=== PATIENT | female | born 1955 | race Caucasian/White ===

== ENCOUNTER 2017-10-09 13:50 | Inpatient (IN) | payer MEDICAID ==
[~2017-10-09] VITALS: Ht 157.5 cm; Wt 49.9 kg
--- NOTE | 2017-10-09 13:50 | NUR ---
Patient BIB family, transferred from ED lobby to bed 1 via [facility]. Dr. Tian, RN and RT evaluating patient at bedside.
[2017-10-09 13:54] VITALS: BP 154/84
[2017-10-09] MEDS ORDERED: DEXTROSE 50% 50 ML SYR IVP ONE ×3 (13:54→15:15)
--- NOTE | 2017-10-09 13:58 | NUR ---
1345-- Pt arrived unresponsive. Pt brought to rm 1. Per daughter, pt took insulin this am, but has not eaten food today. Pt unarousable. Pt's skin cool and clammy. er md roblero, rt, torres rn, shaina rn, arabella emt by bedside. bs=31.
[2017-10-09] MEDS ORDERED: NACL 0.9% 1,000 ML IV ONE ×2 (14:05→14:30)
--- NOTE | 2017-10-09 14:24 | NUR ---
pt drowsy but awake. Pt able to follow commands, responds to name, and verbalizes needs. Pt denies any pain. er md roblero aware.
[2017-10-09 14:27] LABS: HEMOGLOBIN 9.7 g/dL (12.0-16.0); MEAN CORPUSCULAR HEMOGLOBIN 30 pg (27-31); MEAN CORPUSCULAR HGB CONC 35 g/dL (33-37); MEAN CORPUSCULAR VOLUME 86 fL (80-94); PLATELET COUNT (AUTO) 222 K/uL (140-450); RED BLOOD CELL COUNT(AUTO) 3.27 MIL/uL (4.20-5.40); RED CELL DISTRIBUTION WIDTH 12.4 % (11.6-13.7); WHITE BLOOD COUNT (AUTO) 15.3 K/uL (4.8-10.8)
[2017-10-09 14:45] LABS: LYMPHOCYTES % (MANUAL) 2 % (20-46); MONOCYTES % (MANUAL) 10 % (5-12)
--- NOTE | 2017-10-09 15:00 | NUR ---
pt to ct via [facility] accompanied by public health technologist
[2017-10-09 15:03] LABS: SODIUM SERUM 132 mmol/L (136-145)
[2017-10-09 15:04] LABS: ANION GAP 15.8 (8-16); ASPARTATE AMINOTRANSFERASE 20 U/L (15-37); CARBON DIOXIDE 21.5 mmol/L (21-32); CHLORIDE 98 mmol/L (98-107); CREATININE 1.5 mg/dL (0.6-1.3); GFR ARICAN-AMERICAN 46 mL/min (>90); POTASSIUM 3.3 mmol/L (3.5-5.1); UREA NITROGEN, BLOOD 38 mg/dL (7-18)
[2017-10-09 15:05] LABS: ACETAMINOPHEN < 0.5 ug/ml (10-30); ALBUMIN 2.4 g/dL (3.4-5.0); SALICYLATE < 2.8 mg/dL (2.8-20.0)
[2017-10-09 15:06] LABS: GLUCOSE 35 mg/dL (74-106)
[2017-10-09 15:10] LABS: APPEARANCE,URINE TURBID (CLEAR); BILIRUBIN,URINE NEGATIVE (NEGATIVE); BLOOD, URINE 2+ (NEGATIVE); COLOR,URINE YELLOW (YELLOW); LEUKOCYTE ESTERASE ,URINE 1+ (NEGATIVE); NITRITE, URINE NEGATIVE (NEGATIVE); PH,URINE 5.5 (5.0-9.0); UGLUCOSE 2+ (NEGATIVE)
--- NOTE | 2017-10-09 15:17 | NUR ---
pt returned from ct via gurney accompanied by radiology techs
[2017-10-09] MEDS ORDERED: POTASSIUM CHLORIDE 20% 40 MEQ/15 ML UDC PO ONE (15:20)
[2017-10-09 15:28] LABS: BARBITURATE, URINE NEG. ng/ml (NEG <=200); BENZODIAZEPINE, URINE NEG. ng/mL (NEG <=200); CANNABINOID, URINE NEG. ng/mL (NEG <=50); COCAINE, URINE NEG. ng/mL (NEG <=300); OPIATE, URINE NEG. ng/mL (NEG <=2000); PHENCYCLIDINE SCREEN,URINE NEG. ng/mL (NEG <=25)
[2017-10-09 15:34] LABS: TOTAL BILIRUBIN 0.3 mg/dL (0.0-1.0)
[2017-10-09 15:38] LABS: RBC,URINE 3-10 (FEW) /HPF (0-5); WBC,URINE 80-100 /HPF (0-5)
[2017-10-09] MEDS ORDERED: DEXTROSE 50% 50 ML SYR IVP PRN (15:40)
[2017-10-09] MEDS ORDERED: LORazepam 2 MG/ML VIAL IVP PRN (15:40)
[2017-10-09] MEDS ORDERED: HYDROcodone/APAP 5/325 MG 1 TAB TAB PO PRN (15:40)
[2017-10-09] MEDS ORDERED: MORPHINE SULFATE 2 MG/ML SYR IVP PRN (15:40)
[2017-10-09] MEDS ORDERED: ONDANSETRON 4 MG/2 ML VIAL IVP PRN (15:40)
[2017-10-09] MEDS ORDERED: cefTRIAXone 1,000 MG VIAL ONE (15:40)
[2017-10-09] MEDS ORDERED: ACETAMINOPHEN 325 MG TAB PO PRN (15:40)
--- NOTE | 2017-10-09 16:15 | NUR ---
pt is aox4 but drowsy. rr are even and unlabored. vss. nad. will continue to monitor.
[2017-10-09] MEDS ORDERED: FERR325E14 PO (16:21)
[2017-10-09] MEDS ORDERED: GLIP10TA3 PO (16:21)
[2017-10-09] MEDS ORDERED: LISI5TAB18 PO (16:21)
[2017-10-09] MEDS ORDERED: METF1000 PO (16:21)
[2017-10-09] MEDS: BLOOD GLUCOSE MONITORING 1 DEV DEV FS SCH ×2 (16:30→20:46)
[2017-10-09 17:00] VITALS: BP 151/76
--- NOTE | 2017-10-09 17:00 | NUR ---
Patient will be admitted to care of [facility]. Admited to Tele. Will go to room 124. Belongings list completed. bedside report to jonathan shah.
--- NOTE | 2017-10-09 17:00 | NUR ---
PATIENT WAS TRANSFERRED TO THE UNIT FROM ER BY LYNDSEY. REPORT WAS GIVEN AT BEDSIDE. PATIENT WAS ORIENTED TO ROOM, CALL LIGHT, AND STAFF. VS WAS TAKEN, MRSA WAS SWABBED. IVF WAS HUNG. PATIENT IS AWAKE, ALERT, RESPIRATION EVEN, UNLABOR ON 2L NC. SKIN INTACT. IV PATENT AND INTACT. DENIED PAIN, SOB AT THIS TIME. HEAD HOLDER WAS PLACED. FAMILY AT BEDSIDE. CALL LIGHT WITHIN REACH. PLAN OF CARE WAS DISCUSSED WITH PATIENT AND FAMILY
[2017-10-09] MEDS: DEXT 5% /NACL 0.9% 1,000 ML IV SCH (17:46)
[2017-10-09] MEDS: INSULIN LISPRO SLIDING SCALE 100 UNITS/ML VIAL SUBQ PRN ×2 (17:49→20:50)
[2017-10-09 18:44] VITALS: BP 125/61
--- NOTE | 2017-10-09 19:19 | NUR ---
ENDORSEMENT GIVEN TO THE SNOW BLOWER NURSE. PATIENT IS STABLE AT THIS TIME
--- NOTE | 2017-10-09 19:20 | NUR ---
RECEIVED PT IN STABLE CONDITION TO AM NURSE. AWAKE,ALERT AND ORIENTED X4. PRYDEINIG SPEAKING. WITH DAUGHTER AT BEDSIDE. ON TELE MONITOR. WITH O22L/NC. NO ACUTE DISTRESS NOTED. BEDREST . HAS IVF INFUSING WELL ON THE LT AC #20. SKIN INTACT. PLAN OF CARE DISCUSSED AN VERBALIZED UNDERSTANDING. BED ON LOW POSITION. FREQUENT ROUNDS NEEDED. CALL LIGHT PLACED WITHIN EASY REACH. WILL CONTINUE TO MONITOR.
[2017-10-09 19:49] VITALS: BP 145/74
--- NOTE | 2017-10-09 20:50 | NUR ---
BLOOD SUGAR WAS CHECKED RESULT 193. INSULIN COVERAGE GIVEN. HS SNACK PROVIDED. WILL CONTINUE TO MONITOR FOR ANY S/S OF HYPO/HYPERGLYCEMIA.
--- NOTE | 2017-10-09 22:30 | NUR ---
MADE ROUNDS. PT IS ASLEEP. NO S/S OF [place] DISCOMFORT NOR DISTRESS NOTED.
[2017-10-09 23:30] VITALS: BP 149/72
--- NOTE | 2017-10-09 23:30 | NUR ---
MADE ROUNDS. AWAKE. WITH STABLE VITAL SIGNS. NO C/O OF ANY DISCOMFORT AND PAIN NOTED. HAD SOME APPLE JUICE. WILL CONTINUE TO MONITOR.
--- NOTE | 2017-10-10 01:00 | NUR ---
SCD MACHINE APPLIED TO BOTH LOWER LEGS. PT MADE AWARE OF THE PURPOSE OF THE MACHINE.
[2017-10-10] MEDS: DEXT 5% /NACL 0.9% 1,000 ML IV SCH ×4 (01:40→21:40)
--- NOTE | 2017-10-10 02:15 | NUR ---
MADE ROUNDS. AWAKE. HAD SOME WATER TO DRINK. NO C/O ANY PAIN NOR DISCOMFORT NOTED. WILL CONTINUE TO MONITOR.
[2017-10-10 04:00] VITALS: BP 151/74
--- NOTE | 2017-10-10 04:00 | NUR ---
PT AWAKE, NO C/O ANY DISCOMFORT NOR PAIN NOTED.
[2017-10-10] MEDS: BLOOD GLUCOSE MONITORING 1 DEV DEV FS SCH ×4 (06:01→21:23)
[2017-10-10] MEDS: INSULIN LISPRO SLIDING SCALE 100 UNITS/ML VIAL SUBQ PRN ×4 (06:03→21:24)
--- NOTE | 2017-10-10 06:03 | NUR ---
BLOOD SUGAR WAS CHECKED RESULT 278. INSULIN COVERAGE SUB Q GIVEN. WITH CONTINUOUS IVF INFUSING WELL.
--- NOTE | 2017-10-10 07:15 | NUR ---
ENDORSED PT IN STABLE CONDITION TO AM NURSE.
--- NOTE | 2017-10-10 07:27 | NUR ---
ENDORSEMENT RECEIVED FROM TANYARD WORKER NURSE. PATIENT IS AWAKE, ALERT. RESPIRATION EVEN, UNLABOR ON ROOM AIR. SKIN DRY AND WARM. IV PATENT AND INTACT. DENIED SOB AT THIS TIME. PLAN OF CARE WAS DISCUSSED WITH PATIENT. BED AT LOW POSITION WITH BED ALARM ON. CALL LIGHT WITHIN REACH.
[2017-10-10 07:28] LABS: ANION GAP 14.2 (8-16); CARBON DIOXIDE 19.6 mmol/L (21-32); POTASSIUM 3.8 mmol/L (3.5-5.1)
[2017-10-10 07:38] LABS: HEMATOCRIT 24.3 % (36-48); HEMOGLOBIN 8.1 g/dL (12.0-16.0); MEAN CORPUSCULAR HEMOGLOBIN 29 pg (27-31); MEAN CORPUSCULAR HGB CONC 33 g/dL (33-37); MEAN CORPUSCULAR VOLUME 88 fL (80-94); PLATELET COUNT (AUTO) 240 K/uL (140-450); RED BLOOD CELL COUNT(AUTO) 2.76 MIL/uL (4.20-5.40); RED CELL DISTRIBUTION WIDTH 12.2 % (11.6-13.7); WHITE BLOOD COUNT (AUTO) 10.1 K/uL (4.8-10.8)
[2017-10-10 08:00] VITALS: BP 127/63
[2017-10-10 08:39] LABS: CREATININE 3.8 mg/dL (0.6-1.3)
[2017-10-10 09:14] LABS: BASOPHILS % (MANUAL) 0 % (0-2); EOSINOPHILS % (MANUAL) 0 % (0-4); LYMPHOCYTES % (MANUAL) 14 % (20-46); MONOCYTES % (MANUAL) 5 % (5-12)
--- NOTE | 2017-10-10 09:30 | NUR ---
PATIENT IS AWAKE, ALERT. RESPIRATION EVEN, UNLABOR ON 2L NC. DENIED SOB, DIZZINESS AT THIS TIME. MED WAS GIVEN PER ORDER. CALL LIGHT WITHIN REACH
[2017-10-10 12:00] VITALS: BP 147/76
--- NOTE | 2017-10-10 12:47 | NUR ---
DR. WESTFALL WAS MADE AWARE OF THE LAB BLOOD CULTURE RESULT, AND PATIENT'S HYPERTENSION EPISODES
[2017-10-10] MEDS ORDERED: INSULIN DETEMIR 100 UNITS/ML 10 ML VIAL SUBQ SCH (12:51)
--- NOTE | 2017-10-10 14:22 | NUR ---
PATIENT IS AWAKE, ALERT. RESPIRATION EVEN, UNLABOR ON 2L NC. DENIED SOB, LIGHT HEADACHE AT THIS TIME. FAMILY AT BEDSIDE. CALL LIGHT WITHIN REACH.
[2017-10-10 16:00] VITALS: BP 147/76
--- NOTE | 2017-10-10 17:43 | NUR ---
PATIENT IS AWAKE, ALERT, EATING DINNER. RESPIRATION EVEN, UNLABOR ON ROOM AIR. DENIED SOB AT THIS TIME. IV PATENT AND INTACT. CALL LIGHT WITHIN REACH
--- NOTE | 2017-10-10 19:19 | NUR ---
ENDORSEMENT GIVEN TO THE FLIGHT TOWER DISPATCHER NURSE. PATIENT IS STABLE AT THIS TIME
--- NOTE | 2017-10-10 19:20 | NUR ---
RECEIVED PT IN STABLE CONDITION FROM AM NURSE. AWAKE,ALERT AND ORIENTED X4. YAKUT /MONGOLIAN SPEAKING. ON TELE MONITOR. NO C/O ANY DISCOMFORT NOR PAIN NOTED. ON BEDREST. SKIN INTACT. BUT CAN BE UP WITH ASSISTANCE. HAS IVF INFUSING WELL ON THE LT AC G#20. CLEAR AND PATENT. YOUSSEF CATHETER DRAINING STILL WITH CLOUDY URINE WITH SEDIMENTS. HAS SCD MACHINE ON BOTH LOWER LEG. BED ON LOW POSITION, FREQUENT ROUNDS NEEDED. CALL LIGHT PLACED WITHIN EASY REACH. WILL CONTINUE TO MONITOR.
[2017-10-10 20:00] VITALS: BP 142/74
--- NOTE | 2017-10-10 21:24 | NUR ---
BLOOD SUGAR WAS CHECKED REUSLT 157. INSULIN COVERAGE GIVEN. PROVIDED SOME SNACKS . WILL CONTINUE TO MONITOR.
[2017-10-10 23:30] VITALS: BP 143/74
[2017-10-11] MEDS: DEXT 5% /NACL 0.9% 1,000 ML IV SCH ×3 (00:57→14:32)
[2017-10-11 04:00] VITALS: BP 151/78
--- NOTE | 2017-10-11 04:00 | NUR ---
PT SLEPT WELL DURING THE NIGHT. NO S/S OF ANY DISCOMFORT NOTED.
[2017-10-11] MEDS: BLOOD GLUCOSE MONITORING 1 DEV DEV FS SCH ×4 (06:18→21:10)
--- NOTE | 2017-10-11 06:18 | NUR ---
BLOOD SUGAR THIS AM 89. PT HAD SOME JUICE.
[2017-10-11 06:27] LABS: BASOPHILS # (AUTO) 0.1 K/uL (0.00-0.22); BASOPHILS % (AUTO) 1.2 % (0.0-2.0); EOSINOPHILS # (AUTO) 0.1 K/uL (0-0.4); EOSINOPHILS % (AUTO) 1.2 % (0.0-4.0); HEMATOCRIT 23.9 % (36-48); HEMOGLOBIN 8.1 g/dL (12.0-16.0); LYMPHOCYTES # (AUTO) 1.9 K/uL (2.5-16.5); LYMPHOCYTES % (AUTO) 19.1 % (20.5-51.1); MEAN CORPUSCULAR HEMOGLOBIN 29 pg (27-31); MEAN CORPUSCULAR HGB CONC 34 g/dL (33-37); MEAN CORPUSCULAR VOLUME 87 fL (80-94); MONOCYTES % (AUTO) 10.2 % (1.7-9.3); NEUTROPHILS % (AUTO) 68.3 % (42.2-75.2); PLATELET COUNT (AUTO) 267 K/uL (140-450); RED BLOOD CELL COUNT(AUTO) 2.74 MIL/uL (4.20-5.40); RED CELL DISTRIBUTION WIDTH 12.5 % (11.6-13.7); WHITE BLOOD COUNT (AUTO) 10.1 K/uL (4.8-10.8)
[2017-10-11 07:12] LABS: ANION GAP 13.1 (8-16); CARBON DIOXIDE 21.9 mmol/L (21-32); PHOSPHORUS 3.3 mg/dL (2.5-4.9)
--- NOTE | 2017-10-11 07:15 | NUR ---
ENDORSED PT IN STABLE CONDITION TO AM NURSE.
--- NOTE | 2017-10-11 07:30 | NUR ---
RECEIVED PT IN STABLE CONDITION FROM ROLL TABLE OPERATOR NURSE. PT IS AWAKE, ALERT AND OX4. ON TELE MONITOR. NO S/S OF DISTRESS NOTED. DENIES PAIN AT THIS TIME. SKIN INTACT. AMB WITH ASSISTANCE. IV 20G NOTED ON THE LEFT AC, PATENT, INTACT AND INFUSING WELL. YOUSSEF CATHETER DRAINING CLEAR URINE WITH SEDIMENTS. SCD IN PLACE. BED IN LOWEST POSITION, CALL LIGHT WITHIN REACH. WILL CONTINUE TO MONITOR.
[2017-10-11 07:45] LABS: CREATININE 1.1 mg/dL (0.6-1.3)
[2017-10-11 08:00] VITALS: BP 152/77
[2017-10-11] MEDS ORDERED: INSULIN DETEMIR 100 UNITS/ML 10 ML VIAL SUBQ SCH (09:00)
--- NOTE | 2017-10-11 09:19 | NUR ---
PATIENT HAS BEEN SCREENED AND CATEGORIZED HIGH NUTRITION RISK. PATIENT WILL BE SEEN WITHIN 1-2 DAYS OF ADMISSION. 10/10/17-10/11/[address] Addendum: 10/11/17 at [address] [facility] REFERRAL NOT APPROPRIATE, PT RESCREENED AND RECATEGORIZED MODERATE NUTRITION RISK. PATIENT WILL BE SEEN WITHIN 3-5 DAYS OF ADMISSION. 10/11/17-10/13/[address]
--- NOTE | 2017-10-11 09:24 | NUR ---
GLUCOSE CHECKED 266. WILL ADMINISTER LEVEMIR 15 UNITS ORDERED
[2017-10-11 12:00] VITALS: BP 158/82
[2017-10-11] MEDS: INSULIN LISPRO SLIDING SCALE 100 UNITS/ML VIAL SUBQ PRN ×2 (12:24→21:14)
[2017-10-11] MEDS ORDERED: LISINOPRIL 5 MG TAB PO SCH (13:47)
[2017-10-11 16:00] VITALS: BP 146/70
--- NOTE | 2017-10-11 17:50 | NUR ---
PT EATING DINNER WELL, NO S/S OF DISTRESS NOR C/O OF PAIN AT THIS TIME.
--- NOTE | 2017-10-11 19:29 | NUR ---
ENDORSED PT IN STABLE CONDITION TO ELECTROENCEPHALOGRAPHIC TECHNICIAN NURSE.
--- NOTE | 2017-10-11 19:30 | NUR ---
RECEIVED BEDSIDE REPORT FROM DAY SHIFT NURSE PARI RN, PT STABLE, NO DISTRESS NOTED, IV TO L AC RUNNING D5NS @ 100ML/HR, INFUSING WELL, PT ON ROOM AIR, NO SOB, INITIAL ASSESSMENT DONE, ALL SAFETY PRECAUTION MET, FAMILY BY BEDSIDE, WILL CONTINUE TO MONITOR.
[2017-10-11 20:00] VITALS: BP 147/72
--- NOTE | 2017-10-11 21:14 | NUR ---
BLOOD SUGAR CHECKED, 165, INSULIN PRESCRIBED GIVEN, PT TOLERATED WELL, NO DISTRESS NOTED, CALL LIGHT WITHIN REACH, WILL CONTINUE TO MONITOR.
--- NOTE | 2017-10-11 23:50 | NUR ---
CHECKED ON PT, PT STABLE, NO DISTRESS NOTED, SLEEPING, EASY TO AROUSE, CALL LIGHT WITHIN REACH, WILL CONTINUE TO MONITOR.
[2017-10-12] VITALS: BP 142/76
--- NOTE | 2017-10-12 00:57 | NUR ---
PT AMBULATED TO RESTROOM STATING THAT SHE NEEDED TO BM, PT DID NOT DO ANY BM, AMBULATED BACK TO BED, TOLERATED WELL, NO DISTRESS NOTED, CALL LIGHT WITHIN REACH, WILL CONTINUE TO MONITOR.
[2017-10-12] MEDS: DEXT 5% /NACL 0.9% 1,000 ML IV SCH ×2 (01:50→03:20)
--- NOTE | 2017-10-12 03:57 | NUR ---
CHECKED ON PT, PT SLEEPING, EASY TO AROUSE, NO DISTRESS NOTED, REPORTED HAVING NO PAIN, CALL LIGHT WITHIN REACH, WILL CONTINUE TO MONITOR.
[2017-10-12 04:00] VITALS: BP 143/78
--- NOTE | 2017-10-12 05:25 | NUR ---
PT AMBULATES TO THE BATHROOM AND BACK TO BED, STATED THAT IV HURTS, NEW IV INSERTED ON R FA 22 G, INTACT AND PATENT. OTHER IV D/C CATHETER INTACT, PT TOLERATED WELL, WILL CONTINUE TO MONITOR.
[2017-10-12 06:04] LABS: BASOPHILS # (AUTO) 0.2 K/uL (0.00-0.22); BASOPHILS % (AUTO) 1.8 % (0.0-2.0); EOSINOPHILS # (AUTO) 0.1 K/uL (0-0.4); EOSINOPHILS % (AUTO) 1.3 % (0.0-4.0); HEMATOCRIT 24.9 % (36-48); HEMOGLOBIN 8.1 g/dL (12.0-16.0); LYMPHOCYTES # (AUTO) 1.9 K/uL (2.5-16.5); LYMPHOCYTES % (AUTO) 17.2 % (20.5-51.1); MEAN CORPUSCULAR HEMOGLOBIN 29 pg (27-31); MEAN CORPUSCULAR HGB CONC 33 g/dL (33-37); MEAN CORPUSCULAR VOLUME 87 fL (80-94); MONOCYTES # (AUTO) 0.2 K/uL (0.8-1.0); MONOCYTES % (AUTO) 1.8 % (1.7-9.3); NEUTROPHILS # (AUTO) 8.8 K/uL (1.8-7.7); NEUTROPHILS % (AUTO) 77.9 % (42.2-75.2); PLATELET COUNT (AUTO) 307 K/uL (140-450); RED BLOOD CELL COUNT(AUTO) 2.86 MIL/uL (4.20-5.40); RED CELL DISTRIBUTION WIDTH 12.4 % (11.6-13.7); WHITE BLOOD COUNT (AUTO) 11.2 K/uL (4.8-10.8)
[2017-10-12] MEDS: BLOOD GLUCOSE MONITORING 1 DEV DEV FS SCH (06:43)
[2017-10-12] MEDS: INSULIN LISPRO SLIDING SCALE 100 UNITS/ML VIAL SUBQ PRN (06:44)
[2017-10-12 07:03] LABS: ANION GAP 12.2 (8-16); CARBON DIOXIDE 21.1 mmol/L (21-32); CREATININE 1.1 mg/dL (0.6-1.3); POTASSIUM 4.3 mmol/L (3.5-5.1)
[2017-10-12 07:11] LABS: MAGNESIUM 1.9 mg/dL (1.8-2.4); PHOSPHORUS 3.6 mg/dL (2.5-4.9)
--- NOTE | 2017-10-12 07:17 | NUR ---
BEDSIDE REPORT GIVEN TO DAY SHIFT NURSE ISRRAEL FISHMAN, ENDORSED PLAN OF CARE, PT STABLE, NO DISTRESS NOTED, CALL LIGHT WITHIN REACH.
--- NOTE | 2017-10-12 07:30 | NUR ---
RECEIVED REPORT FROM WASTE TREATMENT OPERATOR NURSE, PT IS RESTING IN BED, AAOX4, AMBULATES WITH ASSIST, IV IS ON THE RT FA, PATENT, INTACT, FLUSHING WELL, NO S/S OF RESPIRATORY DISTRESS OR DISCOMFORT NOTED, SKIN IS INTACT, DISCUSSED PLAN OF CARE WITH PT, PT VERBALIZED UNDERSTANDING, SAFETY/FALL PRECAUTIONS ARE IN PLACE, CALL LIGHT IS WITHIN REACH, WILL CONTINUE TO MONITOR.
[2017-10-12 08:00] VITALS: BP 141/81
[2017-10-12] MEDS ORDERED: INSULIN LANTUS 100 UNITS/ML 10 ML VIAL SUBQ SCH (09:00)
[2017-10-12] MEDS ORDERED: LISINOPRIL 5 MG TAB PO SCH (09:00)
[2017-10-12] MEDS ORDERED: LANTUS SUBQ (09:27)
[2017-10-12] MEDS ORDERED: LEVO750T2 PO (09:27)
--- NOTE | 2017-10-12 10:00 | NUR ---
DISCHARGE INSTRUCTIONS GIVEN, ID WRIST BAND REMOVED, IV REMOVED, CATHETER TIP INTACT.
--- NOTE | 2017-10-12 10:30 | NUR ---
PT STABLE UPON DISCHARGE, ACCOMPANIED BY HER .
== END 2017-10-12 10:30 | disposition home or self-care (01) | DRG 720 ==
LOC: MED 13:50 → MTU 15:47
PROVIDERS: ADMIT Preventive Medicine Preventive Medicine/Occupational Environmental Medicine; ATTEND Preventive Medicine Preventive Medicine/Occupational Environmental Medicine
DX: A41.51 Sepsis due to Escherichia coli [E. coli] (principal); G93.40 Encephalopathy, unspecified; E43 Unspecified severe protein-calorie malnutrition; N17.9 Acute kidney failure, unspecified; E87.0 Hyperosmolality and hypernatremia; E11.22 Type 2 diabetes mellitus with diabetic chronic kidney disease; E87.5 Hyperkalemia; N39.0 Urinary tract infection, site not specified; E88.09 Other disorders of plasma-protein metabolism, not elsewhere classified; E11.65 Type 2 diabetes mellitus with hyperglycemia; N18.9 Chronic kidney disease, unspecified; Z16.24 Resistance to multiple antibiotics; E87.6 Hypokalemia; D64.9 Anemia, unspecified; E11.649 Type 2 diabetes mellitus with hypoglycemia without coma; Z68.20 Body mass index [BMI] 20.0-20.9, adult; B96.20 Unspecified Escherichia coli [E. coli] as the cause of diseases classified elsewhere
CPT/HCPCS: 36415; 51702; 70450; 71045; 80048; 80053; 80305; 81001; 82948; 83036; 83605; 83735; 84100; 84484; 85025; 85651; 86140; 87040; 87081; 87086; 87186; 87804; 93005; 96361; 96365; 96375; 99291; G0480; G0482; J0696; J1815; J7030; J7042; J7060; Q0092